=== PATIENT | male | born 1975 | race Hispanic/Latino ===

== ENCOUNTER 2022-02-09 05:08 | Emergency (ER) | payer SELFPAY ==
[2022-02-09] MEDS ORDERED: Sodium Chloride 0.9% 1,000 ML ONE (05:34)
[2022-02-09] MEDS ORDERED: Ondansetron PF 4 MG/2 ML Vial ONE (05:37)
[2022-02-09 05:40] LABS: ALT (SGPT) 28 U/L (8-55); AST (SGOT) 22 U/L (5-34); Alcohol Less than 10 mg/dL (Less than 10); Alkaline Phosphatase 91 U/L (40-110); Anion Gap 15 mmol/L (10-20); BUN (Urea Nitrogen) 11 mg/dL (8.9-20.6); Bilirubin, Total 0.4 mg/dL (0.2-1.2); Calc. Creatinine Clearance 0 mL/min (70-130); Carbon Dioxide 23 mmol/L (22-29); Chloride 105 mmol/L (98-107); Estimated GFR 111; Glucose 109 mg/dL (70-105); Lipase 20 U/L (8-78); Potassium 3.6 mmol/L (3.5-5.1); Sodium 139 mmol/L (136-145)
[2022-02-09 06:06] LABS: #Eosinphils 0.2 thou/uL (0.0-0.7); #Lymphocytes 2.5 thou/uL (1.20-3.40); #Monocytes 0.3 thou/uL (0.11-0.59); #Neutrophils 4.1 thou/uL (1.40-6.50); %Basophils 0.6 % (0.0-1.0); %Eosinophils 3.3 % (0.0-10.0); %Lymphocytes 34.4 % (21.0-51.0); %Monocytes 4.1 % (0.0-10.0); %Neutrophils 57.6 % (42.0-75.0); Hemoglobin 14.8 g/dL (14.0-18.0); Mean Corpuscular HGB CONC 32.4 g/dL (32.0-36.0); Mean Corpuscular Hemoglobin 29.9 pg (27.0-31.0); Mean Corpuscular Volume 92.1 fL (78.0-98.0); Mean Platelet Volume 10.1 fL (7.4-10.4); Platelet Count 258 thou/uL (130-400); RBC Distribution Width 12.8 % (11.5-14.5); Red Blood Cell (RBC) Count 4.95 mill/uL (4.70-6.10); White Blood Cell (WBC) Count 7.2 thou/uL (4.8-10.8)
[2022-02-09 07:06] LABS: SARS-CoV-2 NAA Rapid Test Not Detected (NotDetected)
[2022-02-09] MEDS ORDERED: Boostrix 0.5 ML (Tdap) VIAL ONE (07:33)
[2022-02-09] MEDS ORDERED: Acetaminophen 325 MG TAB ONE (08:38)
[2022-02-09] MEDS ORDERED: Ketorolac Tromethamine 30 MG/ML VIAL ONE (18:00)
== END 2022-02-09 19:44 | disposition short-term general hospital (02) ==
LOC: EDSEX 05:08 → NAV ERS 05:08
DX: R55 Syncope and collapse (principal); R20.2 Paresthesia of skin; Z20.822 Contact with and (suspected) exposure to COVID-19
CPT/HCPCS: 36415; 70450; 72125; 80053; 80307; 83605; 83690; 84484; 85025; 90471; 90715; 93005; 96361; 96374; 96375; G0390; J1885; J2405; J7050; U0002